=== PATIENT | female | born 1985 ===

== ENCOUNTER 2017-01-01 15:38 | Emergency (ER) | payer SELFPAY ==
[2017-01-01 16:22] VITALS: RESP 20; TEMP 99; O2SAT 100
--- NOTE | 2017-01-01 17:25 | C.PDOC ---
History Of Present Illness 31 yr old female presents to the ER with complaints of epigastric pain and nausea for the past 1 month and suprapubic pain for the past 2 days. Patient reports LMP was 11/08. She denies fever, vomiting, diarrhea, dysuria/hematuria , vaginal bleeding/discharge. Time Seen by Provider: 01/01/17 17:04 Chief Complaint (Nursing): Abdominal Pain History Per: Patient History/Exam Limitations: no limitations Onset/Duration Of Symptoms: Persistent Current Symptoms Are (Timing): Still Present Location Of Pain/Discomfort: Epigastric, Suprapubic Past Medical History Reviewed: Historical Data, Nursing Documentation, Vital Signs Vital Signs: Last Vital Signs Temp 99 F 01/01/17 16:19 Pulse 84 01/01/17 16:19 Resp 20 01/01/17 16:19 BP 97/57 L 01/01/17 16:19 Pulse Ox 100 01/01/17 18:14 - Medical History PMH: Migraine Family History: States: No Known Family Hx - Social History Hx Alcohol Use: No Hx Substance Use: No - Immunization History Hx Tetanus Toxoid Vaccination: No Hx Influenza Vaccination: No Hx Pneumococcal Vaccination: No Review Of Systems Except As Marked, All Systems Reviewed And Found Negative. Constitutional: Negative for: Fever Gastrointestinal: Positive for: Nausea, Abdominal Pain (Epigastric and suprapubic). Negative for: Vomiting, Diarrhea Genitourinary: Negative for: Dysuria, Hematuria, Vaginal Discharge, Vaginal Bleeding Physical Exam - Physical Exam Appears: Well, Non-toxic, No Acute Distress Skin: Warm, Dry, No Rash Oral Mucosa: Moist Cardiovascular: Rhythm Regular Respiratory: Normal Breath Sounds, No Rales, No Rhonchi, No Wheezing Gastrointestinal/Abdominal: Bowel Sounds, Soft, Tenderness (Epigastric and suprapubic), No Guarding, No Rebound, No Other ((-) McBurney's) Back: Normal Inspection, No CVA Tenderness Neurological/Psych: Oriented x3 ED Course And Treatment - Laboratory Results Result Diagrams: 01/01/17 18:03 01/01/17 18:03 O2 Sat by Pulse Oximetry: 100 (RA) Pulse Ox Interpretation: Normal Progress Note: PLAN: Blood work, UA, transvaginal US ordered and reviewed. Patient given IV NS bolus, IV pepcid. UA (+) for UTI, PO Macrobid ordered. Disposition - Disposition Disposition Time: 19:00 Condition: STABLE Forms: [facility] (Sinhala) - Clinical Impression Clinical Impression: UTI (urinary tract infection), , Dyspepsia - Scribe Statement The provider has reviewed the documentation as recorded by the Abelardoibe Vicki Rogers Provider Attestation: All medical record entries made by the Abelardoibe were at my direction and personally dictated by me. I have reviewed the chart and agree that the record accurately reflects my personal performance of the history, physical exam, medical decision making, and the department course for this patient. I have also personally directed, reviewed, and agree with the discharge instructions and disposition. Physician Patient Turnover Patient Signed Over To: Stephie Briones Handoff Comments: Pending ultrasound, reassessment
[2017-01-01 17:35] LABS: RBC URINE 2 /hpf (0-3); URINE BACTERIA OCC (<OCC); URINE BILIRUBIN NEGATIVE (NEGATIVE); URINE BLOOD NEGATIVE (NEGATIVE); URINE COLOR Yellow (YELLOW); URINE GLUCOSE (UA) NORMAL (Normal); URINE KETONE NEGATIVE (NEGATIVE); URINE LEUKOCYTE ESTERASE 1+ Leu/uL (Negative); URINE PROTEIN NEGATIVE (NEGATIVE); URINE UROBILINOGEN NORMAL mg/dL (0.2-1.0); WBC URINE 7 /hpf (0-5)
[2017-01-01] MEDS ORDERED: Sodium Chloride 0.9% 1,000 ML IV ONE (17:40)
[2017-01-01 18:06] LABS: BASO % 0.4 % (0.0-2.0); EOS # 0.2 K/uL (0.0-0.7); HEMATOCRIT 39.4 % (34.0-47.0); LYMPH # 2.4 K/uL (1.0-4.3); LYMPH % 31.5 % (20.0-40.0); MEAN CELL VOLUME 87.7 fL (81.0-99.0); MEAN CORPUSCULAR HEMOGLOBIN 29.9 pg (27.0-31.0); MEAN CORPUSCULAR HGB CONC 34.1 g/dL (33.0-37.0); MEAN PLATELET VOLUME 8.5 fL (7.2-11.7); MONO # 0.6 K/uL (0.0-0.8); MONO % 8.5 % (0.0-10.0); RED CELL DISTRIBUTION WIDTH 13.8 % (11.5-14.5); WHITE BLOOD COUNT 7.7 K/uL (4.8-10.8)
[2017-01-01 18:25] LABS: ALKALINE PHOSPHATASE 41 U/L (38-126); ALT/SGPT 51 U/L (9-52); AST/SGOT 22 U/L (14-36); BILIRUBIN,TOTAL 0.3 mg/dL (0.2-1.3); BLOOD UREA NITROGEN 14 mg/dL (7-17); CALCIUM 8.3 mg/dl (8.6-10.4); CARBON DIOXIDE 24 mmol/L (22-30); CHLORIDE 98 mmol/L (98-107); GFR AFRICAN-AMERICAN > 60; GLUCOSE,RANDOM 97 mg/dL (65-105); POTASSIUM 3.7 mmol/L (3.6-5.2); SODIUM 133 mmol/L (132-148)
--- NOTE | 2017-01-01 19:46 | US ---
EXAM: US First Trimester, Transabdominal EXAM DATE/TIME: 01/01/2017 5:41 PM CLINICAL HISTORY: 31 years old, female; Pain; complicated by abdominal or pelvic pain; Generalized abdominal pain; First trimester; Gestational age or lmp: 11/08/2016; ; Additional info: Pelvic pain, TECHNIQUE: Real-time transabdominal obstetrical ultrasound of the maternal pelvis and a first trimester with image documentation. COMPARISON: There are no prior studies for comparison. FINDINGS: Gestation: There is a single gestational sac in the uterus. Gestational sac has mean diameter 30 mm. Niland rump length measures 8.9 mm. A yolk sac is present, internal diameter measures 2 mm. There is a heart rate of 130 beats per minute.. Uterus: Uterus measures approximately 9.3 x 6.5 x 7.2 cm. Cervix measures approximately 3 cm. Ovaries: Right ovary measures approximately 2.3 x 1.3 x 1.7 cm. Left ovary measures approximately 2.4 x 2.3 x 2.3 cm. There is a dominant follicle the left ovary. There is flow in both ovaries on Doppler imaging. Free fluid: There is no free fluid. Bladder: Bladder is almost empty. IMPRESSION: 7 week 3 day single living intrauterine gestation, estimated date of delivery 08/17/17
[2017-01-01 20:22] VITALS: BP 112/68; PULSE 78
== END 2017-01-01 20:21 | disposition home or self-care (01) ==
LOC: C.ER 15:38
DX: O23.41 Unspecified infection of urinary tract in pregnancy, first trimester (principal); R10.13 Epigastric pain; Z3A.01 Less than 8 weeks gestation of pregnancy
CPT/HCPCS: 76801; 80053; 81001; 84702; 84703; 85025; 86850; 86900; 96361; 96374; 99285; J7040